=== PATIENT | male | born 1940 | race Caucasian/White ===

== ENCOUNTER 2018-08-14 09:44 | Outpatient (CLI) | payer MEDICARE ==
--- NOTE | 2018-08-14 10:18 | RAD ---
RIGHT KNEE FOUR VIEWS: History: Sharp knee pain. FINDINGS: There are mild degenerative changes. Mild loss of medial joint space. Mild spurring from the femoral condyles and patella. No evidence of joint effusion. No fracture or acute abnormality. IMPRESSION: Mild degenerative change. POS: [facility]
--- NOTE | 2018-08-14 10:19 | RAD ---
LEFT KNEE FOUR VIEWS: History: Knee pain. FINDINGS: Very mild degenerative change is noted. Medial and lateral joint spaces are preserved. Mild spurring from the femoral condyles and posterior patella. No evidence of joint effusion. No evidence of fractu re or acute abnormality. IMPRESSION: Mild degenerative changes left knee, symmetric with those on the right. POS: [facility]
--- NOTE | 2018-08-14 10:21 | RAD ---
LUMBAR SPINE THREE VIEWS: History: Low back pain. FINDINGS: Slight curvature of the lumbar spine is seen, convexity to the right. On the lateral view the lumbar vertebrae maintain height. There is mild anterolisthesis at L4-5 and minimal anterolisthesis at L5-S1 . There loss of disc space at L4-5 and L5-S1. Mild to moderate osteophytes are seen most prominent at L4 and L5. Facet sclerosis is prominent at L4-5 and L5-S1. Suggestion of central canal stenosis at L 4-5. IMPRESSION: Moderate degenerative changes most prominent at L4-5 and L5-S1. If there are radicular symptoms, cons ider further evaluation with MRI. POS: [facility]
== END 2018-08-14 09:45 | disposition home or self-care (01) ==
LOC: RAD-FRANK 09:44
PROVIDERS: ATTEND Nurse Practitioner Family
DX: M25.561 Pain in right knee (principal); M25.562 Pain in left knee; I73.9 Peripheral vascular disease, unspecified; M17.0 Bilateral primary osteoarthritis of knee; M47.896 Other spondylosis, lumbar region; M47.897 Other spondylosis, lumbosacral region
CPT/HCPCS: 72100

== ENCOUNTER 2018-11-04 13:42 | Outpatient (CLI) | payer MEDICARE ==
[~2018-11-04 13:42] MED LIST: Gadobenate Dimeglumine 529 MG/1 ML (20ML VIAL) ONE
[2018-11-04 14:33] LABS: Estimated GFR-MDRD - POC Greater than 90
--- NOTE | 2018-11-04 15:51 | MRI ---
MRI LUMBAR SPINE WITH AND WITHOUT CONTRAST: INDICATIONS: History of spondylolisthesis of the lumbar region and chronic low back pain since 2001. CONTRAST: MultiHance 16 mL. FINDINGS: There is post surgical change of left hemilaminotomies at L3-L4, L4-L5, and L5-S1. Bone marrow signal intensity appears within normal limits. There is grade 1 anterolisthesis of L5 on S1. The conus is seen to terminate at the expected L1 level. The visualized retroperitoneum and prevertebral soft tissues appear within normal limits. There is a 6 mm cyst within the right mid kidney. At L5-S1, there is moderate facet joint degenerative change and bilateral broad-based bulge. Loss of disk space height, in addition to the degenerative changes at this level, induces moderate bilateral neural foraminal narrowing. At L4-L5, there is a broad-based disk osteophyte complex with facet degenerative change, inducing mod erate to severe right and moderate left neural foraminal narrowing. There is also mild bilateral lat eral recess narrowing at this level. At L3-L4, there is a broad-based bulge with facet joint degenerative change inducing mild bilateral n eural foraminal narrowing and mild central canal narrowing. At L2-L3, there is a mild broad-based bulge with facet joint degenerative change, with mild neural fo raminal encroachment. At L1-L2, there is no appreciable central canal or neural foraminal narrowing. There is a mildly pro minent synovial cyst projecting anteromedially off the left L1-L2 facet complex, measuring 7 mm, caus ing mild effacement of the left posterolateral subarachnoid space. At T12-L1, there is no appreciable central canal or neural foraminal narrowing. No definite abnormal enhancement is demonstrated. IMPRESSION: 1. Postoperative lumbar spine. 2. Multilevel spondylosis of the lumbar spine with multilevel neural foraminal narrowing, as detaile d above. POS: [facility]
== END 2018-11-04 13:43 | disposition home or self-care (01) ==
LOC: BICMRI 13:42
PROVIDERS: ATTEND Specialist
DX: M43.16 Spondylolisthesis, lumbar region (principal); M96.1 Postlaminectomy syndrome, not elsewhere classified; M47.817 Spondylosis without myelopathy or radiculopathy, lumbosacral region; M47.816 Spondylosis without myelopathy or radiculopathy, lumbar region; M48.061 Spinal stenosis, lumbar region without neurogenic claudication; M48.07 Spinal stenosis, lumbosacral region
CPT/HCPCS: 72158; 82565

== ENCOUNTER 2019-10-29 07:46 | Outpatient (CLI) | payer MEDICARE ==
--- NOTE | 2019-10-29 08:30 | RAD ---
RIGHT KNEE 3 VIEWS: HISTORY: Pain. COMPARISON: 08/14/2018. FINDINGS: Osteoarthrosis and degenerative changes. No acute fracture or dislocation. IMPRESSION: Osteoarthrosis and degenerative change without fracture or dislocation. Vascular calcifications. St able from prior study. POS: OFF
== END 2019-10-29 07:47 | disposition home or self-care (01) ==
LOC: RAD-FRANK 07:46
PROVIDERS: ATTEND Nurse Practitioner Family
DX: M25.561 Pain in right knee (principal); M17.11 Unilateral primary osteoarthritis, right knee; I70.90 Unspecified atherosclerosis

== ENCOUNTER 2019-12-28 09:25 | Outpatient (CLI) | payer MEDICARE ==
--- NOTE | 2019-12-28 09:58 | RAD ---
RIGHT TIBIA AND FIBULA 2 VIEWS: Date: 12/28/2019 HISTORY: Leg pain. FINDINGS: No evidence of fracture. No acute osseous abnormality. IMPRESSION: No acute findings. POS: [facility]
== END 2019-12-28 09:26 | disposition home or self-care (01) ==
LOC: RAD-FRANK 09:25
PROVIDERS: ATTEND Nurse Practitioner Family
DX: M79.604 Pain in right leg (principal)

== ENCOUNTER 2020-10-24 10:24 | Outpatient (CLI) | payer MEDICARE ==
--- NOTE | 2020-10-24 11:11 | CT ---
Head CT without contrast 10/24/2020: COMPARISON: None HISTORY: Dizzy spells for 2 months TECHNIQUE: Axial CT imaging at 5 mm intervals from vertex through skull base without contrast. [place] l and sagittal reformatted imaging obtained. FINDINGS: The imaged paranasal sinuses and mastoid air cells are well-aerated. No displaced calvarial fracture. No intracranial hemorrhage, midline shift, or mass effect. There is atherosclerotic calcification of the distal vertebral arteries and the cavernous carotid art eries. IMPRESSION: No acute findings. If symptoms persist, follow-up MRI may be beneficial.
== END 2020-10-24 10:25 | disposition home or self-care (01) ==
LOC: BICCT 10:24
PROVIDERS: ATTEND Nurse Practitioner Family
DX: R26.81 Unsteadiness on feet (principal)
CPT/HCPCS: 70450

== ENCOUNTER 2020-12-09 14:01 | Outpatient (CLI) | payer MEDICARE ==
[~2020-12-09 14:01] MED LIST changes: -Gadobenate Dimeglumine 529 MG/1 ML (20ML VIAL) ONE; +Magnevist 469MG/ML 20 ML VIAL ONE
== END 2020-12-09 14:02 | disposition home or self-care (01) ==
LOC: BICMRI 14:01
PROVIDERS: ATTEND Psychiatry & Neurology Neurology
DX: M79.606 Pain in leg, unspecified (principal); M47.816 Spondylosis without myelopathy or radiculopathy, lumbar region; M48.061 Spinal stenosis, lumbar region without neurogenic claudication; Z98.890 Other specified postprocedural states
CPT/HCPCS: 72158; 82565; A9579

== ENCOUNTER 2021-09-07 08:21 | Outpatient (CLI) | payer MEDICARE ==
[2021-09-07 09:47] LABS: PTT 26.3 sec (22.0-33.0); Prothrombin Time 10.9 sec (9.5-12.1)
[2021-09-07 09:52] LABS: Anion Gap 12 mmol/L (10-20); BUN (Urea Nitrogen) 13 mg/dL (8.4-25.7); Calc. Creatinine Clearance 0 mL/min (70-130); Calcium 9.5 mg/dL (7.8-10.44); Carbon Dioxide 29 mmol/L (23-31); Chloride 104 mmol/L (98-107); Glucose 105 mg/dL (83-110); Potassium 4.5 mmol/L (3.5-5.1); Sodium 140 mmol/L (136-145)
[2021-09-07 09:54] LABS: Hemoglobin 16.2 g/dL (13.5-17.5); Mean Corpuscular Hemoglobin 31.5 pg (27.0-33.0); Mean Corpuscular Volume 87.4 fl (81.2-95.1); Mean Platelet Volume 10.7 fl (7.4-10.4); Platelet Count 233 10x3/uL (150-450); Red Blood Cell (RBC) Count 5.15 10x6/uL (4.32-5.72); White Blood Cell (WBC) Count 6.5 10x3/uL (3.5-10.5)
[2021-09-07 22:05] LABS: SARS-CoV-2 PCR by NAA Not Detected (NotDetected)
== END 2021-09-07 08:22 | disposition home or self-care (01) ==
LOC: LABBT 08:21
PROVIDERS: ATTEND Surgery
DX: Z01.818 Encounter for other preprocedural examination (principal); M51.16 Intervertebral disc disorders with radiculopathy, lumbar region; M48.061 Spinal stenosis, lumbar region without neurogenic claudication; Z20.822 Contact with and (suspected) exposure to COVID-19
CPT/HCPCS: 80048; 85027; 85610; 85730; 93005; U0003; U0005; 93010

== ENCOUNTER 2021-09-12 05:56 | Observation (INO) | payer MEDICARE ==
[2021-09-12] MEDS ORDERED: Sodium Chloride 0.9% 0 ML ONE (06:25)
[2021-09-12] MEDS ORDERED: Thrombin 5000 UNITS/5 ML VIAL ONE (06:25)
[2021-09-12] MEDS ORDERED: ceFAZolin 2 GM/DEX 5% 100 ML BAG ONE ×2 (06:30→13:56)
[2021-09-12] MEDS ORDERED: Fentanyl 100 MCG/2 ML VIAL ONE ×5 (06:47→12:37)
[2021-09-12] MEDS ORDERED: Promethazine HCl 25 MG/ML VIAL IVPB PRN (07:24)
[2021-09-12] MEDS ORDERED: Morphine Sulfate 2 MG/ML SYRINGE SLOW IVP PRN (07:24)
[2021-09-12] MEDS ORDERED: Promethazine HCl 25 MG/ML VIAL IM PRN (07:24)
[2021-09-12] MEDS ORDERED: Ondansetron HCl/PF 4 MG/2 ML Vial IVP PRN (07:24)
[2021-09-12] MEDS ORDERED: HYDROmorphone 2 MG/ML VIAL SLOW IVP PRN (07:24)
[2021-09-12] MEDS ORDERED: Meperidine HCl/PF 25 MG/ML VIAL SLOW IVP PRN (07:24)
[2021-09-12] MEDS ORDERED: Dexamethasone 20 MG/5 ML VIAL ONE (07:37)
[2021-09-12] MEDS ORDERED: PROPOFOL 200 MG/20 ML VIAL ONE (07:37)
[2021-09-12] MEDS ORDERED: Ondansetron PF 4 MG/2 ML Vial ONE (07:37)
[2021-09-12] MEDS ORDERED: ePHEDrine 50 MG/ML VIAL ONE (07:37)
[2021-09-12] MEDS ORDERED: Lidocaine 1% PF 5 ML VIAL ONE (07:37)
[2021-09-12] MEDS ORDERED: Rocuronium Bromide 10 MG/ML (10ML VIAL) ONE (07:37)
[2021-09-12] MEDS ORDERED: SUGAMMADEX SODIUM 200 MG/2 ML VIAL ONE (09:48)
[2021-09-12] MEDS ORDERED: Acetaminophen 325 MG TAB PO PRN (10:12)
[2021-09-12] MEDS ORDERED: traMADol HCl 50 MG TAB PO PRN (10:12)
[2021-09-12] MEDS ORDERED: Acetaminophen/Codeine 30-300mg Tablet PO PRN (10:12)
[2021-09-12] MEDS ORDERED: hydrALAZINE 20 MG/ML VIAL SLOW IVP PRN (10:16)
[2021-09-12] MEDS ORDERED: HYDROmorphone 0.5 MG/0.5 ML SYRINGE ONE ×5 (10:18→11:54)
[2021-09-12] MEDS ORDERED: hydrALAZINE 20 MG/ML VIAL ONE (12:42)
[2021-09-12] MEDS: Ketorolac Tromethamine 30 MG/ML VIAL IVP SCH ×2 (12:45→13:34)
[2021-09-12] MEDS ORDERED: Ketorolac Tromethamine 30 MG/ML VIAL ONE (12:45)
[2021-09-12] MEDS ORDERED: Morphine 4 MG/ML VIAL ONE (13:30)
[2021-09-12] MEDS: Morphine 2 MG/ML VIAL SLOW IVP PRN ×2 (13:33→14:11)
[2021-09-12] MEDS ORDERED: tiZANidine HCl 4 MG TAB ONE (13:38)
[2021-09-12] MEDS: tiZANidine HCl 4 MG TAB PO PRN ×2 (13:40→20:48)
[2021-09-12] MEDS: Sodium Chloride 0.9% 1,000 ML IV SCH ×2 (13:59→23:45)
[2021-09-12] MEDS: ceFAZolin Sodium/D5W 2 GM in Premix Bag 1 BAG IVPB SCH ×2 (13:59→21:04)
[2021-09-12 15:35] VITALS: BMI 28.3
[2021-09-12] MEDS ORDERED: HYDROcodone/Acetaminophen 10/325 mg Tablet PO PRN (16:01)
[2021-09-12] MEDS: Morphine 4 MG/ML VIAL SLOW IVP PRN ×2 (17:30→22:40)
[2021-09-12] MEDS: HYDROcodone/Acetaminophen 10/325 mg Tablet PO PRN (20:48)
[2021-09-12] MEDS: metFORMIN 500 MG TAB PO SCH (20:48)
[2021-09-12] MEDS: Pregabalin 75 MG CAP PO SCH (20:48)
[2021-09-12] MEDS: Oxybutynin 5 MG TAB PO SCH (20:48)
[2021-09-12] MEDS: Lisinopril 20 MG TAB PO SCH (20:48)
[2021-09-12] MEDS ORDERED: Lisinopril 20 MG TAB PO SCH (21:00)
[2021-09-12] MEDS ORDERED: metFORMIN 500 MG TAB PO SCH (21:00)
[2021-09-12] MEDS ORDERED: Oxybutynin 5 MG TAB PO SCH (21:00)
[2021-09-12] MEDS ORDERED: Pregabalin 75 MG CAP PO SCH (21:00)
[2021-09-12] MEDS ORDERED: Finasteride 5 MG TAB PO SCH ×2 (21:00)
[2021-09-13 04:56] VITALS: TEMP 98.1
[2021-09-13] MEDS: HYDROcodone/Acetaminophen 10/325 mg Tablet PO PRN ×2 (05:05→11:11)
[2021-09-13] MEDS: tiZANidine HCl 4 MG TAB PO PRN (05:06)
[2021-09-13 07:56] VITALS: BP 98/62
[2021-09-13] MEDS: Lisinopril 20 MG TAB PO SCH (08:34)
[2021-09-13] MEDS: metFORMIN 500 MG TAB PO SCH (08:34)
[2021-09-13] MEDS: Pregabalin 75 MG CAP PO SCH (08:34)
[2021-09-13] MEDS: Oxybutynin 5 MG TAB PO SCH (08:34)
== END 2021-09-13 11:42 | disposition home or self-care (01) ==
LOC: SDC 05:56 → T4-A 10:12
PROVIDERS: ADMIT Surgery; ATTEND Surgery
PROC: 01NB0ZZ Release Lumbar Nerve, Open Approach (ICD-10-PCS; principal; 2021-09-12)
PROC: 0ST20ZZ Resection of Lumbar Vertebral Disc, Open Approach (ICD-10-PCS; 2021-09-12)
DX: M48.062 Spinal stenosis, lumbar region with neurogenic claudication (principal); M51.16 Intervertebral disc disorders with radiculopathy, lumbar region; M48.07 Spinal stenosis, lumbosacral region; Z79.82 Long term (current) use of aspirin; Z79.84 Long term (current) use of oral hypoglycemic drugs; Z79.899 Other long term (current) drug therapy; Z91.048 Other nonmedicinal substance allergy status
CPT/HCPCS: 63042; 63047; 63048 ×2; 76000; 82962 ×2; 96374; 96375; 96376; G0378 ×2; 36416; J0360; J1100; J1170; J1885; J2270; J2405; J2704; J3010; J3370; J3490

== ENCOUNTER 2021-11-17 07:54 | Outpatient (CLI) | payer MEDICARE | END 2021-11-17 07:55 | disposition home or self-care (01) | LOC: TBSIIMAG 07:54 | PROVIDERS: ATTEND Surgery | DX: M47.26 Other spondylosis with radiculopathy, lumbar region (principal); M47.12 Other spondylosis with myelopathy, cervical region; M51.16 Intervertebral disc disorders with radiculopathy, lumbar region; M48.061 Spinal stenosis, lumbar region without neurogenic claudication; Z98.890 Other specified postprocedural states; M51.04 Intervertebral disc disorders with myelopathy, thoracic region; M48.02 Spinal stenosis, cervical region | CPT/HCPCS: 72100; 72141; 72146; 72148 ==

== ENCOUNTER 2021-11-22 09:21 | Outpatient (CLI) | payer MEDICARE | END 2021-11-22 09:22 | disposition home or self-care (01) | LOC: TBSIIMAG 09:21 | PROVIDERS: ATTEND Surgery | DX: M25.551 Pain in right hip (principal); M25.552 Pain in left hip; M16.0 Bilateral primary osteoarthritis of hip ==

== ENCOUNTER 2021-11-29 10:04 | Outpatient (CLI) | payer MEDICARE | END 2021-11-29 10:05 | disposition home or self-care (01) | LOC: TBSIIMAG 10:04 | PROVIDERS: ATTEND Specialist | DX: M43.16 Spondylolisthesis, lumbar region (principal); M51.36 Other intervertebral disc degeneration, lumbar region | CPT/HCPCS: 72110 ==

== ENCOUNTER 2022-01-24 09:33 | Outpatient (CLI) | payer MEDICARE ==
[2022-01-24 10:42] LABS: Hemoglobin 15.4 g/dL (13.5-17.5); Mean Corpuscular HGB CONC 33.9 g/dL (32.0-36.0); Mean Corpuscular Hemoglobin 29.6 pg (27.0-33.0); Mean Corpuscular Volume 87.1 fl (81.2-95.1); Mean Platelet Volume 10.2 fl (7.4-10.4); Platelet Count 241 10x3/uL (150-450); RBC Distribution Width 12.1 % (11.5-14.5); Red Blood Cell (RBC) Count 5.21 10x6/uL (4.32-5.72); White Blood Cell (WBC) Count 6.3 10x3/uL (3.5-10.5)
[2022-01-24 10:56] LABS: INR-International Normal Ratio 0.9; PTT 25.8 sec (22.0-33.0); Prothrombin Time 9.9 sec (9.5-12.1)
[2022-01-24 10:58] LABS: Anion Gap 13 mmol/L (10-20); BUN (Urea Nitrogen) 13 mg/dL (8.4-25.7); Calc. Creatinine Clearance 0 mL/min (70-130); Calcium 9.2 mg/dL (7.8-10.44); Carbon Dioxide 25 mmol/L (23-31); Chloride 103 mmol/L (98-107); Glucose 120 mg/dL (83-110); Potassium 4.6 mmol/L (3.5-5.1); Sodium 136 mmol/L (136-145)
[2022-01-24 21:42] LABS: SARS-CoV-2 PCR by NAA DETECTED (NotDetected)
== END 2022-01-24 09:34 | disposition home or self-care (01) ==
LOC: LABBT 09:33
PROVIDERS: ATTEND Surgery
DX: Z01.818 Encounter for other preprocedural examination (principal); U07.1 COVID-19; M51.16 Intervertebral disc disorders with radiculopathy, lumbar region; M48.061 Spinal stenosis, lumbar region without neurogenic claudication
CPT/HCPCS: 80048; 85027; 85610; 85730; 93005; U0003; U0005; 93010

== ENCOUNTER 2022-02-15 05:59 | Day surgery (SDC) | payer MEDICARE ==
[2022-01-24 13:22] VITALS: BMI 27.3
[2022-02-15] MEDS ORDERED: Thrombin 5000 UNITS/5 ML VIAL ONE (06:26)
[2022-02-15] MEDS ORDERED: fentaNYL Citrate/PF 100 MCG/2 ML SYRINGE ONE (06:56)
[2022-02-15] MEDS ORDERED: Sodium Chloride 0.9% 100 ML ONE (07:16)
[2022-02-15] MEDS ORDERED: CEFAZOLIN 2 GM VIAL ONE (07:16)
[2022-02-15] MEDS ORDERED: Lidocaine 2% Jelly 5 ML TUBE ONE (07:50)
[2022-02-15] MEDS ORDERED: Lidocaine 1% PF 5 ML VIAL ONE (07:58)
[2022-02-15] MEDS ORDERED: Ondansetron PF 4 MG/2 ML Vial ONE (07:58)
[2022-02-15] MEDS ORDERED: Glycopyrrolate 0.2 MG/ML 5 ML SYRINGE ONE (07:58)
[2022-02-15] MEDS ORDERED: ePHEDrine 50 MG/ML VIAL ONE (07:58)
[2022-02-15] MEDS ORDERED: PROPOFOL 200 MG/20 ML VIAL ONE (07:58)
[2022-02-15] MEDS ORDERED: Rocuronium Bromide 10 MG/ML (10ML VIAL) ONE (07:58)
[2022-02-15] MEDS ORDERED: Phenylephrine 10 MG/ML VIAL ONE (08:41)
[2022-02-15] MEDS ORDERED: Fentanyl 100 MCG/2 ML VIAL ONE ×2 (10:09→10:45)
[2022-02-15] MEDS ORDERED: HYDROcodone/Acetaminophen 5/325 mg Tablet ONE (13:35)
== END 2022-02-15 15:26 | disposition home or self-care (01) ==
LOC: SDC 05:59
PROVIDERS: ATTEND Surgery
PROC: 01NB0ZZ Release Lumbar Nerve, Open Approach (ICD-10-PCS; principal; 2022-02-15)
DX: M51.16 Intervertebral disc disorders with radiculopathy, lumbar region (principal); M48.061 Spinal stenosis, lumbar region without neurogenic claudication; M48.062 Spinal stenosis, lumbar region with neurogenic claudication; Z91.048 Other nonmedicinal substance allergy status
CPT/HCPCS: 76000; J2370; J2405; J2704; J3010; J3370; J3490

== ENCOUNTER 2022-03-12 12:55 | Outpatient (CLI) | payer MEDICARE | END 2022-03-12 12:56 | disposition home or self-care (01) | LOC: TBSIIMAG 12:55 | PROVIDERS: ATTEND Surgery | DX: M25.562 Pain in left knee (principal) ==

== ENCOUNTER 2022-03-28 11:10 | Outpatient (CLI) | payer MEDICARE | END 2022-03-28 11:11 | disposition home or self-care (01) | LOC: TBSIIMAG 11:10 | PROVIDERS: ATTEND Specialist | DX: M43.16 Spondylolisthesis, lumbar region (principal); M87.852 Other osteonecrosis, left femur; M47.816 Spondylosis without myelopathy or radiculopathy, lumbar region; Z98.890 Other specified postprocedural states | CPT/HCPCS: 72100 ==

== ENCOUNTER 2022-05-16 10:12 | Outpatient (CLI) | payer OTHER, MEDICARE | END 2022-05-16 10:13 | disposition home or self-care (01) | LOC: LABBT 10:12 | PROVIDERS: ATTEND Surgery | DX: Z20.822 Contact with and (suspected) exposure to COVID-19 (principal) | CPT/HCPCS: 87811 ==

== ENCOUNTER 2022-05-21 10:06 | Day surgery (SDC) | payer MEDICARE, OTHER ==
[2022-05-17 14:14] VITALS: BMI 27.3
[2022-05-21] MEDS ORDERED: fentaNYL Citrate/PF 100 MCG/2 ML SYRINGE ONE (11:39)
[2022-05-21] MEDS ORDERED: Dexmedetomidine 200 MCG/2 ML VIAL ONE (11:39)
[2022-05-21] MEDS ORDERED: Midazolam HCl 2 mg/2 ml Vial ONE (12:48)
[2022-05-21] MEDS ORDERED: Ketamine 50 MG/ML (10ML VIAL) ONE (12:48)
== END 2022-05-21 14:33 | disposition home or self-care (01) ==
LOC: MRI 10:06
PROVIDERS: ATTEND Surgery
DX: M51.16 Intervertebral disc disorders with radiculopathy, lumbar region (principal); I10 Essential (primary) hypertension; E11.9 Type 2 diabetes mellitus without complications; E78.00 Pure hypercholesterolemia, unspecified; D64.9 Anemia, unspecified; M41.9 Scoliosis, unspecified; N40.0 Benign prostatic hyperplasia without lower urinary tract symptoms; Z79.82 Long term (current) use of aspirin; Z79.84 Long term (current) use of oral hypoglycemic drugs; Z79.899 Other long term (current) drug therapy; Z88.8 Allergy status to other drugs, medicaments and biological substances; Z91.048 Other nonmedicinal substance allergy status
CPT/HCPCS: 72148; J2250

== ENCOUNTER 2024-06-24 10:20 | Outpatient (CLI) | payer OTHER | END 2024-06-24 10:21 | disposition home or self-care (01) | LOC: BICRAD 10:20 | PROVIDERS: ATTEND Ophthalmology | DX: H53.15 Visual distortions of shape and size (principal); H53.469 Homonymous bilateral field defects, unspecified side | CPT/HCPCS: 71046 ==

== ENCOUNTER 2025-05-12 11:07 | Emergency (ER) | payer MEDICARE ==
[2025-05-12 11:50] LABS: #Basophils 0.03 10x3/uL (0.0-0.2); #Eosinophils 0.33 10x3/uL (0.0-0.7); #Monocytes 0.85 10x3/uL (0.11-0.59); #Neutrophils 4.25 10x3/uL (1.40-6.50); %Basophils 0.4 % (0.0-1.0); %Eosinophils 4.7 % (0.0-10.0); %Lymphocytes 21.9 % (21.0-51.0); %Monocytes 12.1 % (0.0-10.0); %Neutrophils 60.3 % (42.0-75.0); Hematocrit 45.3 % (42.0-52.0); Hemoglobin 15.5 g/dL (14.0-18.0); Mean Corpuscular Hemoglobin 30.9 pg (27.0-31.0); Mean Corpuscular Volume 90.4 fL (78.0-98.0); Platelet Count 191 10x3/uL (130-400); Red Blood Cell (RBC) Count 5.01 mill/uL (4.70-6.10); White Blood Cell (WBC) Count 7.04 10x3/uL (4.8-10.8)
[2025-05-12 12:17] LABS: ALT (SGPT) 17 U/L (Less than 45); AST (SGOT) 17 U/L (11-34); Albumin 4.2 g/dL (3.1-4.5); Alkaline Phosphatase 55 U/L (40-110); Anion Gap 12 mmol/L (10-20); BUN (Urea Nitrogen) 25 mg/dL (8.4-25.7); Bilirubin, Total 0.5 mg/dL (0.3-1.2); Calc. Creatinine Clearance 0 mL/min (70-130); Calcium 9.0 mg/dL (7.8-10.44); Carbon Dioxide 26 mmol/L (23-31); Chloride 106 mmol/L (98-107); Globulin 2.6 g/dL (2.4-3.5); Glucose 115 mg/dL (83-110); Potassium 3.9 mmol/L (3.5-5.1); Sodium 140 mmol/L (136-145)
== END 2025-05-12 14:10 | disposition home or self-care (01) ==
LOC: ERS 11:07
DX: R42 Dizziness and giddiness (principal); I44.0 Atrioventricular block, first degree; R00.1 Bradycardia, unspecified; E11.9 Type 2 diabetes mellitus without complications; I10 Essential (primary) hypertension
CPT/HCPCS: 70450; 71045; 80053; 83880; 84484; 85025; 93005

== ENCOUNTER 2025-05-27 12:22 | Outpatient (CLI) | payer MEDICARE | END 2025-05-27 12:23 | disposition home or self-care (01) | LOC: MRI 12:22 | PROVIDERS: ATTEND Physician Assistant | DX: H53.9 Unspecified visual disturbance (principal); Z86.73 Personal history of transient ischemic attack (TIA), and cerebral infarction without residual deficits | CPT/HCPCS: 70553; 76376 ==